=== PATIENT | female | born 1960 | race Caucasian/White ===

== ENCOUNTER 2018-09-18 19:17 | Emergency (ER) | payer OTHER ==
[~2018-09-18] VITALS: Ht 170.2 cm; Wt 93.0 kg
[~2018-09-18 19:17] MED LIST: METO25TA14 PO
[2018-09-18 19:21] VITALS: BP 200/133
--- NOTE | 2018-09-18 19:30 | NUR ---
58/F BIBA FOR REPORTED INSULIN HUMALOG OVERDOSE. PT REPORTS TAKING 70 UNITS AT 1830. HER RX IS FOR HUMALOG 20 UNITS TID AND LANTUS 50 UNIT QHS. PT ARRIVES TO ER, AOX4, GCS 15, RR EVEN AND UNLABORED, MILDLY DIAPHORETIC, REPORTS 4/10 HEADACHE. DENIES LOC, SUDDEN N/V. PT REPORTS THAT SHE RAN OUT OF HER RX LEXAPRO FOR 1 WEEK NOW. PT DENIES SI/HI. ENVIRONMENT CHECKED, SAFETY MEASURES ENSURED AT THIS TIME. HX HTN, DM, DEPRESSION, RA RX INSULIN HUMALOG, INSULIN LANTUS, NORCO, LEXAPRO, PAIN PATCH
--- NOTE | 2018-09-18 19:45 | NUR ---
PT'S GRANDDAUGHTER LIYAH LOPEZ [phone] CALLED, STATING THAT SHE IS CONCERNED THAT PT'S INSULIN OVERDOSE MAY BE A SUICIDAL ATTEMPT AND STATING THAT PT HAS BEEN OFF LEXAPRO. SHE ALSO STATED THAT SHE DOES NOT WANT PT TO KNOW THAT SHE CALLED. EXPLAINED TO PT'S GRANDDAUGHTER THAT PT'S MEDICAL INFO CANNOT BE RELEASED UNLESS WITH PT APPROVAL. PT'S GRANDDAUGHTER VERBALIZED UNDERSTANDING. ER MADE AWARE.
--- NOTE | 2018-09-18 20:32 | NUR ---
Dr. Roldan evaluating patient at bedside.
[2018-09-18] MEDS ORDERED: NACL 0.9% 1,000 ML IV ONE (20:40)
[2018-09-18 20:41] LABS: BASOPHILS # (AUTO) 0.1 K/uL (0.00-0.22); BASOPHILS % (AUTO) 0.5 % (0.0-2.0); EOSINOPHILS # (AUTO) 0.2 K/uL (0-0.4); EOSINOPHILS % (AUTO) 1.6 % (0.0-4.0); HEMOGLOBIN 17.3 g/dL (12.0-16.0); LYMPHOCYTES # (AUTO) 3.4 K/uL (2.5-16.5); LYMPHOCYTES % (AUTO) 33.1 % (20.5-51.1); MEAN CORPUSCULAR HEMOGLOBIN 31 pg (27-31); MEAN CORPUSCULAR HGB CONC 35 g/dL (33-37); MONOCYTES # (AUTO) 0.6 K/uL (0.8-1.0); MONOCYTES % (AUTO) 5.8 % (1.7-9.3); PLATELET COUNT (AUTO) 235 K/uL (140-450); RED BLOOD CELL COUNT(AUTO) 5.51 MIL/uL (4.20-5.40); RED CELL DISTRIBUTION WIDTH 13.6 % (11.6-13.7); WHITE BLOOD COUNT (AUTO) 10.2 K/uL (4.8-10.8)
--- NOTE | 2018-09-18 20:42 | NUR ---
PT LAYING IN BED, RR EVEN AND UNLABORED. VSS. BLOOD GLUCOSE 265. ALL NEEDS MET AT THIS TIME.
[2018-09-18] MEDS ORDERED: ESCITALOPRAM 20 MG TAB PO ONE (20:50)
[2018-09-18 21:00] LABS: ALBUMIN 4.2 g/dL (3.4-5.0); ANION GAP 18.1 (8-16); ASPARTATE AMINOTRANSFERASE 17 U/L (15-37); CARBON DIOXIDE 24.6 mmol/L (21-32); CHLORIDE 96 mmol/L (98-107); CREATININE 0.8 mg/dL (0.6-1.3); GFR ARICAN-AMERICAN 95 mL/min (>90); GLUCOSE 283 mg/dL (74-106); POTASSIUM 3.7 mmol/L (3.5-5.1); SODIUM SERUM 135 mmol/L (136-145); TOTAL BILIRUBIN 0.6 mg/dL (0.0-1.0); UREA NITROGEN, BLOOD 14 mg/dL (7-18)
--- NOTE | 2018-09-18 21:00 | NUR ---
PT GIVEN SNACKS
[2018-09-18 21:02] LABS: SALICYLATE < 2.8 mg/dL (2.8-20.0)
[2018-09-18 21:04] LABS: ACETAMINOPHEN < 0.5 ug/ml (10-30)
[2018-09-18 21:18] LABS: BARBITURATE, URINE NEG. ng/ml (NEG <=200); BENZODIAZEPINE, URINE NEG. ng/mL (NEG <=200); CANNABINOID, URINE NEG. ng/mL (NEG <=50); COCAINE, URINE NEG. ng/mL (NEG <=300); OPIATE, URINE POS. ng/mL (NEG <=2000); PHENCYCLIDINE SCREEN,URINE NEG. ng/mL (NEG <=25)
--- NOTE | 2018-09-18 21:50 | NUR ---
NO LEXAPRO IN HOSPITAL PER ROSS LIFT OPERATOR, ER MD MADE AWARE, PT MADE AWARE. PT GIVEN 24 HR PHARMACY TO [facility] RX TONIGHT.
[2018-09-18 22:00] VITALS: BP 140/79
--- NOTE | 2018-09-18 22:00 | NUR ---
PT'S FAMILY CALLED FOR TRANSPORT, ETA 40MINS-1HR. PT SPOKE WITH FAMILY. PT CONDITION STABLE, VSS. PT DISCHARGED TO LOBBY AT THIS TIME.
--- NOTE | 2018-09-18 22:00 | NUR ---
Patient discharged with v/s stable. Written and verbal after care instructions given and explained. Patient alert, oriented and verbalized understanding of instructions. Ambulatory with steady gait. All questions addressed prior to discharge. ID band removed. Patient advised to follow up with PMD. Rx of LEXAPRO given. Patient educated on indication of medication including possible reaction and side effects. Opportunity to ask questions provided and answered.
== END 2018-09-18 22:00 | disposition home or self-care (01) ==
LOC: MED 19:17
DX: T38.3X1A Poisoning by insulin and oral hypoglycemic [antidiabetic] drugs, accidental (unintentional), initial encounter (principal); G44.40 Drug-induced headache, not elsewhere classified, not intractable; E11.9 Type 2 diabetes mellitus without complications; I10 Essential (primary) hypertension; Z88.1 Allergy status to other antibiotic agents; Z79.84 Long term (current) use of oral hypoglycemic drugs; Y92.89 Other specified places as the place of occurrence of the external cause
CPT/HCPCS: 36415; 80053; 80305; 82948; 84460; 85025; 93005; 99284; G0480; G0482; J7030

== ENCOUNTER 2022-03-06 00:05 | Emergency (ER) | payer OTHER ==
[~2022-03-06] VITALS: Ht 171.4 cm; Wt 77.6 kg
[2022-03-06 00:16] VITALS: BP 140/96
--- NOTE | 2022-03-06 00:16 | NUR ---
received i bed 9 biba 04/26 LOWER BACK AND LEFT ANKLE PAIN S/P MECHANICAL FALL. DENIES INJURY TO HEAD. NO LOC. PRESENTS WITH 20G TO LEFT HAND. NO MEDS GIVEN. HX:DM, NEUROPATHY, ARTHRITIS, HTN ALLERGY;MORPHINE
--- NOTE | 2022-03-06 01:16 | NUR ---
ERMD AT BEDSIDE
[2022-03-06] MEDS ORDERED: KETOROLAC 30 MG/ML VIAL IM ONE (01:25)
[2022-03-06] MEDS ORDERED: oxyCODONE/APAP 5/325 MG 1 TAB TAB PO ONE (01:25)
--- NOTE | 2022-03-06 02:17 | NUR ---
RAD AT BEDSIDE
--- NOTE | 2022-03-06 04:27 | NUR ---
XRAY AT BEDSIDE
[2022-03-06] MEDS ORDERED: NAPR-54 PO (04:48)
--- NOTE | 2022-03-06 05:00 | NUR ---
CRUTCH TEACHING WITH RETURN DEMONSTRATION
[2022-03-06 05:05] VITALS: BP 140/96
--- NOTE | 2022-03-06 05:05 | NUR ---
Patient discharged with v/s stable. Written and verbal after care instructions given and explained. Patient alert, oriented and verbalized understanding of instructions. Wheel Chair Assisted with to car. All questions addressed prior to discharge. ID band removed. Patient advised to follow up with PMD. Rx of nAPROSYN given. Patient educated on indication of medication including possible reaction and side effects. Opportunity to ask questions provided and answered.
== END 2022-03-06 05:05 | disposition home or self-care (01) ==
LOC: MED 00:05
DX: S82.832A Other fracture of upper and lower end of left fibula, initial encounter for closed fracture (principal); S30.0XXA Contusion of lower back and pelvis, initial encounter; E11.9 Type 2 diabetes mellitus without complications; I10 Essential (primary) hypertension; F17.210 Nicotine dependence, cigarettes, uncomplicated; Z88.1 Allergy status to other antibiotic agents; Z88.5 Allergy status to narcotic agent; Z79.899 Other long term (current) drug therapy; Z98.890 Other specified postprocedural states; W19.XXXA Unspecified fall, initial encounter; Y93.89 Activity, other specified; Y92.090 Kitchen in other non-institutional residence as the place of occurrence of the external cause; Y99.8 Other external cause status
CPT/HCPCS: 29515; 72220; 73560; 73610; 73630; 96372; 99284; J1885; Q0092